=== PATIENT | female | born 1940 | race Caucasian/White ===

== ENCOUNTER 2018-05-23 10:47 | Observation (INO) | payer MEDICARE ==
[2018-05-23] MEDS ORDERED: Sodium Chloride 0.9% 1,000 ML IV ONE (12:48)
[2018-05-23] MEDS ORDERED: Sodium Chloride 0.9% 1,000 ML ONE (13:07)
[2018-05-23 13:14] LABS: BASO # 0.1 K/uL (0.0-0.2); BASO % 0.9 % (0.0-2.0); EOS # 0.2 K/uL (0.0-0.7); EOS % 2.2 % (0.0-4.0); HEMOGLOBIN 12.7 g/dL (11.0-16.0); LYMPH # 1.6 K/uL (1.0-4.3); LYMPH % 21.9 % (20.0-40.0); MEAN CELL VOLUME 92.7 fL (81.0-99.0); MEAN CORPUSCULAR HEMOGLOBIN 30.1 pg (27.0-31.0); MEAN CORPUSCULAR HGB CONC 32.5 g/dL (33.0-37.0); MEAN PLATELET VOLUME 10.6 fL (7.2-11.7); MONO # 0.4 K/uL (0.0-0.8); NRBC % 0.1 % (0.0-2.0); RBC 4.22 Mil/uL (3.80-5.20); RED CELL DISTRIBUTION WIDTH 14.1 % (11.5-14.5); WHITE BLOOD COUNT 7.2 K/uL (4.8-10.8)
[2018-05-23 13:35] LABS: BLOOD UREA NITROGEN 19 mg/dL (7-17); CALCIUM 9.6 mg/dl (8.6-10.4); GFR NON-AFRICAN AMERICAN > 60
[2018-05-23 13:36] LABS: ALB/GLOB RATIO 1.1 (1.0-2.1); ALT/SGPT 16 U/L (9-52); AST/SGOT 21 U/L (14-36); LIPASE 33 U/L (23-300)
[2018-05-23 13:37] LABS: SQUAMOUS EPITHIAL 3 /hpf (0-5); URINE BILIRUBIN NEGATIVE (NEGATIVE); URINE BLOOD 1+ (NEGATIVE); URINE CLARITY Clear (Clear); URINE COLOR Yellow (YELLOW); URINE GLUCOSE (UA) NORMAL (Normal); URINE LEUKOCYTE ESTERASE NEG Leu/uL (Negative); URINE PROTEIN 1+ mg/dL (NEGATIVE); URINE UROBILINOGEN NORMAL mg/dL (0.2-1.0)
--- NOTE | 2018-05-23 13:52 | RAD ---
Date of service: 05/23/2018 PROCEDURE: CHEST RADIOGRAPH, 1 VIEW HISTORY: epi abd pain COMPARISON: None available. FINDINGS: LUNGS: Poor inspiration with low lung volumes, crowded bronchovascular markings and mild bibasilar atelectasis. PLEURA: No pneumothorax or pleural fluid seen. CARDIOVASCULAR: Heart appears mildly enlarged. OSSEOUS STRUCTURES: No significant abnormalities. VISUALIZED UPPER ABDOMEN: Normal. OTHER FINDINGS: None. IMPRESSION: Poor inspiration with low lung volumes, crowded bronchovascular markings and mild bibasilar atelectasis.
--- NOTE | 2018-05-23 16:20 | CT ---
Date of service: 05/23/2018 PROCEDURE: CT HEAD WITHOUT CONTRAST. HISTORY: headache, dizziness COMPARISON: None available. TECHNIQUE: Axial computed tomography images were obtained through the head/brain without intravenous contrast. Radiation dose: Total exam DLP = 985.56 mGy-cm. This CT exam was performed using one or more of the following dose reduction techniques: Automated exposure control, adjustment of the mA and/or kV according to patient size, and/or use of iterative reconstruction technique. FINDINGS: HEMORRHAGE: No intracranial hemorrhage. BRAIN: Diffuse atrophy with prominence of the ventricles and sulci noted. No mass effect or edema. Intracranial atherosclerosis. Scattered periventricular and subcortical white matter hypodensities, which are nonspecific, but often seen with chronic microvascular ischemic disease. Please note that MRI with diffusion imaging is more sensitive in the detection of acute ischemic event. VENTRICLES: No hydrocephalus. CALVARIUM: Unremarkable. PARANASAL SINUSES: Opacification of the limited visualization left maxillary sinus. MASTOID AIR CELLS: Unremarkable as visualized. No inflammatory changes. OTHER FINDINGS: None. IMPRESSION: Generalized atrophy. Nonspecific white matter changes. Opacification of the limited visualized left maxillary sinus. Correlate clinically for possibility of sinusitis.
[2018-05-23] MEDS ORDERED: DiphenhydrAMINE 50 mg/ml Inj IVP STA (16:27)
[2018-05-23] MEDS ORDERED: DiphenhydrAMINE 50 mg/ml Inj ONE (16:42)
--- NOTE | 2018-05-23 17:58 | C.PDOC ---
History Of Present Illness 78 y/o female presents to the ER complaining of nausea and vomiting which has been present for the past 4-5 days. Patient states that she also feels dizzy and she feels weak as well.Patient denies having fever, chills, CP, SOB, abdominal pain, diarrhea, and GI bleeding. Time Seen by Provider: 05/23/18 12:01 Chief Complaint (Nursing): GI Problem History Per: Patient History/Exam Limitations: no limitations Onset/Duration Of Symptoms: Days Current Symptoms Are (Timing): Still Present Severity: Moderate Past Medical History Reviewed: Historical Data, Nursing Documentation, Vital Signs Vital Signs: Last Vital Signs Temp 98 F 05/23/18 17:40 Pulse 76 05/23/18 17:40 Resp 16 05/23/18 17:40 BP 163/74 H 05/23/18 17:40 Pulse Ox 98 05/23/18 17:40 - Medical History PMH: HTN Surgical History: Cholecystectomy - [facility] Procedures REMOV INTRALUM ESOPH FB (08/15/14) Family History: States: No Known Family Hx - Social History Hx Alcohol Use: No Hx Substance Use: No - Immunization History Hx Tetanus Toxoid Vaccination: No Hx Influenza Vaccination: No Hx Pneumococcal Vaccination: No Review Of Systems Except As Marked, All Systems Reviewed And Found Negative. Constitutional: Positive for: Weakness. Negative for: Fever, Chills Cardiovascular: Negative for: Chest Pain Respiratory: Negative for: Shortness of Breath Gastrointestinal: Positive for: Nausea, Vomiting. Negative for: Abdominal Pain, Diarrhea Genitourinary: Negative for: Dysuria, Hematuria Neurological: Positive for: Dizziness Physical Exam - Physical Exam Appears: Chronically Ill (female) Skin: Normal Color, Warm, Dry, No Rash Head: Atraumatic, Normacephalic Eye(s): bilateral: Normal Inspection, PERRL, EOMI Ear(s): Bilateral: Normal Nose: Normal Oral Mucosa: Moist Throat: Normal, No Erythema, No Exudate Neck: Supple Chest: Symmetrical Cardiovascular: Rhythm Regular Respiratory: Normal Breath Sounds, No Rales, No Rhonchi, No Wheezing Gastrointestinal/Abdominal: Normal Exam, Soft, No Tenderness, No Guarding, No Rebound Back: Normal Inspection, No CVA Tenderness Extremity: Normal ROM, No Swelling Neurological/Psych: Oriented x3, Normal Speech, Normal Motor Gait: Steady ED Course And Treatment - Laboratory Results Result Diagrams: 05/23/18 13:05 05/23/18 13:05 O2 Sat by Pulse Oximetry: 98 (RA) Pulse Ox Interpretation: Normal - CT Scan/US CT-Head Other Rad Studies (CT/US): Read By Radiologist, Radiology Report Reviewed CT/US Interpretation: Date of service: 05/23/2018. PROCEDURE: CT HEAD WITHOUT CONTRAST. HISTORY: headache, dizziness. COMPARISON: None available. TECHNIQUE: Axial computed tomography images were obtained through the head/brain without intravenous contrast. Radiation dose: Total exam DLP = 985.56 mGy-cm. This CT exam was performed using one or more of the following dose reduction techniques: Automated exposure control, adjustment of the mA and/or kV according to patient size, and/or use of iterative reconstruction technique. FINDINGS: HEMORRHAGE: No intracranial hemorrhage. BRAIN: Diffuse atrophy with prominence of the ventricles and sulci noted. No mass effect or edema. Intracranial atherosclerosis. Scattered periventricular and subcortical white matter hypodensities, which are nonspecific, but often seen with chronic microvascular ischemic disease. Please note that MRI with diffusion imaging is more sensitive in the detection of acute ischemic event. VENTRICLES: No hydrocephalus. CALVARIUM: Unremarkable. PARANASAL SINUSES: Opacification of the limited visualization left maxillary sinus. MASTOID AIR CELLS: Unremarkable as visualized. No inflammatory changes. OTHER FINDINGS: None. IMPRESSION: Generalized atrophy. Nonspecific white matter changes. Opacification of the limited visualized left maxillary sinus. Correlate clinically for possibility of sinusitis. Medical Decision Making Medical Decision Making: Plan: --Labs --UA --CT- Head --Benadryl IV --Pepcid IV --Reglan IV --Toradol IV --Zofran IV The patient is not improving. Unsteady gait with dizziness. The patient was evaluated by Dr. Malhotra at bedside who agrees to admit the patient. Disposition - Disposition Disposition: HOSPITALIZED Disposition Time: 14:30 Condition: STABLE - POA Present On Arrival: None - Clinical Impression Clinical Impression: Weakness, Vomiting - PA / CARD SETTER / Resident Statement MD/DO has reviewed & agrees with the documentation as recorded. - Scribe Statement The provider has reviewed the documentation as recorded by the Bree Pierre Provider Attestation All medical record entries made by the Scribe were at my direction and personally dictated by me. I have reviewed the chart and agree that the record accurately reflects my personal performance of the history, physical exam, medical decision making, and the department course for this patient. I have also personally directed, reviewed, and agree with the discharge instructions and disposition.
[2018-05-23 18:51] VITALS: RESP 20
--- NOTE | 2018-05-24 03:12 | HP ---
HISTORY OF PRESENT ILLNESS: This is a 78-year-old female with history of multiple medical problems including hypertension, osteoarthritis, presented to emergency room with a 4-day history of epigastric pain, nausea, and frequent vomiting. The patient was complaining of generalized weakness. The patient was evaluated in the emergency room and she was started on IV fluid as well as given antiemetics including Zofran and Reglan. The patient's blood work did not reveal any pancreatitis. The patient was admitted for further management. PAST MEDICAL HISTORY: As above. MEDICATIONS: Were reviewed and ordered. FAMILY HISTORY: Noncontributory. SOCIAL HISTORY: No history of smoking, EtOH, or substance abuse. REVIEW OF SYSTEMS: Other review of system is bilateral knee pain and lower extremity pain. ALLERGIES: POSITIVE FOR PIPERACILLIN, FOR ZOSYN. PHYSICAL EXAMINATION: GENERAL: The patient is in bed, not in any cardiopulmonary distress. VITAL SIGNS: Blood pressure 163/74, temperature 98, respiratory rate 16, and pulse 76. HEENT: Pupils equal, reactive to light. Normal-appearing mucosa of the conjunctivae, oropharynx and nasal membrane mucosa. NECK: Supple. No JVD. No carotid bruit. No lymph node. No thyromegaly. CARDIOPULMONARY: PMI not localized. S1, S2. No additional sounds. CHEST: Lungs, bilateral symmetrical expansion. Good air exchange. No rales, no rhonchi. ABDOMEN: Normoactive bowel sounds. No tenderness. No organomegaly. No masses. EXTREMITIES: No cyanosis, no clubbing, no edema. RESIDENT SERVICES SUPERVISOR: Alert, awake, oriented x2. No neurological deficit could be appreciated. ASSESSMENT: 1. Gastroenteritis with dehydration and persistent nausea and vomiting. 2. Hypertension. PLAN: IV fluid and antiemetics and advance diet as tolerated. Marge Malhotra MD
[2018-05-24] MEDS ORDERED: Potassium Chloride 20 mEq ER Tab PO ONE (07:15)
--- NOTE | 2018-05-24 21:28 | PN ---
DATE: 05/24/2018 SUBJECTIVE: The patient is seen today, 05/24/2018. She is still having some nausea but no vomiting. The patient is on liquid diet and IV fluid. OBJECTIVE: VITAL SIGNS: Blood pressure 134/67, temperature 98.7, respiratory rate 20, and pulse 69. HEENT: Pupils equal and reactive to light. Normal-appearing mucosa of the conjunctivae, oropharynx, and nasal membrane mucosa. NECK: Supple. No JVD. No carotid bruit. No lymph node. No thyromegaly. CHEST AND LUNGS: Bilateral symmetrical expansion. Good air exchange. No rales, no rhonchi. CARDIOVASCULAR SYSTEM: PMI not localized. S1, S2. No additional sounds. ABDOMEN: Normoactive bowel sounds. No tenderness. No organomegaly. No masses. EXTREMITIES: No cyanosis, no clubbing, no edema. SILVER BUFFER: Alert, awake, and oriented x2. No neurological deficit could be appreciated. ASSESSMENT Gastroenteritis with persistent nausea and vomiting, dehydration, hypokalemia. PLAN: Antiemetics and advance diet as tolerated. Continue IV fluids. Marge Malhotra MD
[2018-05-25 01:38] VITALS: O2SAT 97
--- NOTE | 2018-05-25 08:13 | CARD ---
APPROVED REPORT Date of service: 05/23/2018 EKG Measurement Heart [id number] <Conclusion> Normal sinus rhythm Normal ECG
[2018-05-25 08:18] VITALS: BP 155/78; PULSE 67; TEMP 98.1
[2018-05-25 09:05] LABS: BLOOD UREA NITROGEN 14 mg/dL (7-17); CALCIUM 9.4 mg/dl (8.6-10.4); GFR NON-AFRICAN AMERICAN > 60
[2018-05-25] MEDS ORDERED: Pantoprazole 40 mg EC Tab PO SCH (10:00)
--- NOTE | 2018-05-25 12:08 | CP.PCM.PN ---
Subjective - Date & Time of Evaluation Date of Evaluation: 05/25/18 Time of Evaluation: 12:08 - Subjective Subjective: alert, oriented, no pain or vomiting ,NAD. Objective - Vital Signs/Intake and Output Vital Signs (last 24 hours): Temp Pulse Resp BP Pulse Ox 98.1 F 67 20 155/78 H 97 05/25/18 08:14 05/25/18 08:14 05/25/18 08:14 05/25/18 08:14 05/25/18 08:14 - Labs Labs: 05/23/18 13:05 05/25/18 08:29 Assessment and Plan - Assessment and Plan (Free Text) Assessment: 78 year old female admitted with nausea and vomiting, seen and examined. Alert and orientedx3, denies any abdominal pain or vomiting, tolerating diet,NAD. Discussed with DR Malhotra, plan to discharge home with family today. Advised to follow up in the office in 1 week.
== END 2018-05-25 12:04 | disposition home or self-care (01) ==
LOC: C.ER 10:47 → C.9E 17:20 → C.6T 18:07
PROVIDERS: ADMIT Internal Medicine; ATTEND Internal Medicine
DX: K52.9 Noninfective gastroenteritis and colitis, unspecified (principal); E86.0 Dehydration; I10 Essential (primary) hypertension
CPT/HCPCS: 36415; 70450; 71045; 80048; 80053; 81001; 83690; 84484; 85025; 87086; 93005; 96360; 96374; 97116; 97162; 97166; 97530; 99285; C9113; G0378; G8978; G8979; G8987; G8988; J1200; J1644; J1885; J2405; J2765; J7030